=== PATIENT | male | born 1975 | race African-American/Black ===

== ENCOUNTER 2018-10-05 17:34 | Emergency (ER) | payer OTHER ==
[~2018-10-05] VITALS: Ht 188 cm; Wt 104.3 kg
--- NOTE | 2018-10-05 18:06 | ED Integumentary General ---
General Chief Complaint: Bite-Animal/Human/Insect Stated Complaint: BUMPS ON BACKSIDE Nursing Triage Note: PT AMBULATE TO ROOM 06 WITH C/O 3 INSECT BITES TO THE TOP OF LEFT BUTTOCKS. STATES BITES HAPPENED APPROX 0200 THIS AM. PT STATES HE WAS IN THE BACK SEAT OF A CAR WHEN THE BITES HAPPENED. Source: patient Exam Limitations: no limitations History of Present Illness Date Seen by Provider: Oct 05, 2018 Time Seen by Provider: 18:01 Initial Comments The patient is a 43-year-old black male who works at [employer]. He reports that about 0200 this morning while in the back seat of a car he felt acute pain in the upper extent of his left buttock and shortly thereafter noted extreme itching. Ultimately later this morning he scratched it harshly with his fingernails causing some bleeding. There has been no drainage from these lesions. He reports he has not been in the grass or weeds. He has no other symptoms. Timing/Duration: this morning Possible Cause: insect bite, insect sting Allergies and Home Medications Patient Home Medication List Home Medication List Reviewed: Yes Review of Systems Review of Systems Constitutional: see HPI EENTM: no symptoms reported Respiratory: no symptoms reported Cardiovascular: no symptoms reported Gastrointestinal: no symptoms reported Genitourinary: no symptoms reported Musculoskeletal: no symptoms reported Skin: no symptoms reported Psychiatric/Neurological: No Symptoms Reported Endocrine: No Symptoms Reported Hematologic/Lymphatic: No Symptoms Reported Past Lidxsmp-Jbuxvg-Bqmsoy Hx Patient Social History Recent Foreign Travel: No Contact w/Someone Who Travel: No Recent Infectious Disease Expo: No Physical Exam Vital Signs Vital Signs - First Documented 10/05/18 17:42 Temp 98.8 Pulse 94 Resp 16 B/P (MAP) 128/87 (101) Pulse Ox 96 O2 Delivery Room Air Capillary Refill : Less Than 3 Seconds General Appearance: mild distress HEENT: normal ENT inspection Neck: non-tender, full range of motion, supple, normal inspection Cardiovascular: normal peripheral pulses, regular rate, rhythm, no edema, no gallop, no JVD, no murmur Respiratory: chest non-tender, lungs clear, normal breath sounds, no respiratory distress, no accessory muscle use Gastrointestinal: normal bowel sounds, non tender, soft, no organomegaly, no pulsatile mass Comments There are 3 dimes sized intradermal welts in a near straight line across the upper pole of the left buttock,. Progress/Results/Core Measures Results/Orders Vital Signs/I&O 10/05/18 17:42 Temp 98.8 Pulse 94 Resp 16 B/P (MAP) 128/87 (101) Pulse Ox 96 O2 Delivery Room Air Blood Pressure Mean: 101 Departure Impression Primary Impression: Insect bites Disposition: 01 HOME, SELF-CARE Condition: Stable/Unchanged Departure-Patient Inst. Decision time for Depature: 18:06 Referrals: NO,LOCAL PHYSICIAN (PCP) Primary Care Physician Patient Instructions: Insect Bites and Stings Add. Discharge Instructions: All discharge instructions reviewed with patient and/or family. Voiced understanding. Obtain Benadryl and or Zyrtec and use as directed for itching. Obtain Cortizone 10 and apply to lesions 3 or 4 times daily. Do not use hot bath water or shower this will increase the itching. CHUCK WELLINGTON MD Oct 05, 2018 18:06
[2018-10-05 18:49] VITALS: BP 131/88
== END 2018-10-05 18:33 | disposition home or self-care (01) ==
LOC: ER 17:36
DX: S30.860A Insect bite (nonvenomous) of lower back and pelvis, initial encounter (principal); W57.XXXA Bitten or stung by nonvenomous insect and other nonvenomous arthropods, initial encounter
CPT/HCPCS: 99283

== ENCOUNTER 2019-10-31 16:35 | Emergency (ER) | payer OTHER ==
[~2019-10-31] VITALS: Ht 187.9 cm; Wt 90.7 kg
[2019-10-31] MEDS ORDERED: RX-ALBUTEROL INHALER (VENTOLIN HFA) 18 GM IH STA (17:13)
--- NOTE | 2019-10-31 17:18 | ED Cough/URI ---
General Chief Complaint: Respiratory Problems Stated Complaint: SOA Nursing Triage Note: PT AMB TO RM 10 WITH COMPLAINT SOA THAT STARTED YESTERDAY. Sepsis Screen: No Definite Risk Source: patient Exam Limitations: no limitations History of Present Illness Date Seen by Provider: Oct 31, 2019 Time Seen by Provider: 17:15 Initial Comments Cough, slight shortness of breath that started yesterday. No fever no headache no body aches no sore throat no known exposure to Covid 19. Otherwise healthy without known medical comorbidities. Timing/Duration: just prior to arrival, constant Severity/Quality: moderate Associated Symptoms: cough, shortness of breath Allergies and Home Medications Allergies Coded Allergies: No Known Drug Allergies (Unverified , 10/31/19) Patient Home Medication List Home Medication List Reviewed: Yes Review of Systems Review of Systems Constitutional: see HPI EENTM: see HPI Respiratory: no symptoms reported, see HPI, cough, short of breath Cardiovascular: no symptoms reported Genitourinary: no symptoms reported Musculoskeletal: no symptoms reported Skin: no symptoms reported Psychiatric/Neurological: No Symptoms Reported Hematologic/Lymphatic: No Symptoms Reported Immunological/Allergic: no symptoms reported Past Cbqhtjs-Qskbjd-Gkadiu Hx Patient Social History Alcohol Use: Occasionally Uses Recreational Drug Use: Yes (MARIUJUANA METH) Smoking Status: Current Everyday Smoker Type Used: Cigarettes 2nd Hand Smoke Exposure: Yes Recent Foreign Travel: No Contact w/Someone Who Travel: No Recent Infectious Disease Expo: No Recent Hopitalizations: No Immunizations Up To Date Tetanus Booster (TDap): Unknown Seasonal Allergies Seasonal Allergies: No Past Medical History Surgeries: No Respiratory: No Cardiac: No Neurological: No Sexually Transmitted Disease: Yes (TRICHOMONIS) HIV/AIDS: No Genitourinary: No Gastrointestinal: No Musculoskeletal: No Endocrine: No HEENT: No Loss of Vision: Denies Hearing Impairment: Denies Cancer: No Psychosocial: No Integumentary: No Blood Disorders: No Physical Exam Vital Signs - First Documented 10/31/19 16:45 Temp 37.5 Pulse 94 Resp 20 B/P (MAP) 130/89 (103) Pulse Ox 97 O2 Delivery Room Air Capillary Refill : Less Than 3 Seconds Height: 6'2.00" Weight: 230lbs. oz. [id number]; 25.00 BMI Method:Stated General Appearance: WD/WN, no apparent distress, other (oxygen saturation 99% room air) Eyes: Bilateral Eye Normal Inspection, Bilateral Eye PERRL, Bilateral Eye EOMI Neck: non-tender, full range of motion Respiratory: no respiratory distress, no accessory muscle use Cardiovascular: regular rate, rhythm, no murmur, other (little tachycardia rate of 105) Gastrointestinal: normal bowel sounds, non tender, soft Neurologic/Psychiatric: alert, normal mood/affect, oriented x 3 Skin: normal color, warm/dry Progress/Results/Core Measures Suspected Sepsis Recent Fever Within 48 Hours: No Infection Criteria Present: None New/Unexplained Altered Menta: No Sepsis Screen: No Definite Risk SIRS Temperature: Pulse: 94 Respiratory Rate: 20 Blood Pressure 130 /89 Mean: 103 Results/Orders My Orders Orders - RICHAR ARAYA APRN Chest 1 View, Ap/Pa Only (10/31/19 17:13) Coronavirus Sars-Cov-2 So 2018 (10/31/19 17:13) Rx-Albuterol Inhaler (Rx-Ventolin Hfa) (10/31/19 17:13) Vital Signs/I&O 10/31/19 16:45 Temp 37.5 Pulse 94 Resp 20 B/P (MAP) 130/89 (103) Pulse Ox 97 O2 Delivery Room Air Capillary Refill : Less Than 3 Seconds Blood Pressure Mean: 103 Departure Impression Primary Impression: Viral syndrome Disposition: 01 HOME, SELF-CARE Condition: Stable Departure-Patient Inst. Decision time for Depature: 17:17 Referrals: NO,LOCAL PHYSICIAN (PCP/Family) Primary Care Physician Patient Instructions: Viral Syndrome (DC) Add. Discharge Instructions: 1. Go home and stay quarantine for 24-48 hours until the Covid swab is resulted. Return to ER for any worsening shortness of breath. If you're Covid swab comes back positive [facility] will be in touch with you to guide you further as to when to return to work. All discharge instructions reviewed with patient and/or family. Voiced understanding. Work/School Note: Work Release Form Date Seen in the Emergency Department: Oct 31, 2019 Return to Work: Oct 31, 2019 Restrictions: Need Release from Doctor RICHAR ARAYA APRN Oct 31, 2019 17:18
[2019-10-31] MEDS ORDERED: predniSONE 20 MG TAB PO ONE (18:00)
[2019-10-31] MEDS ORDERED: RX-ACETAMINOPHEN/CODEINE TAB PPK #4 PO SCH (18:00)
[2019-10-31] MEDS ORDERED: LEVOFLOXACIN 500 MG TAB (LEVAQUIN) PO ONE (18:00)
--- NOTE | 2019-10-31 18:13 | Diagnostic Imaging Report ---
EXAM: CHEST 1 VIEW, AP/PA ONLY INDICATION: Cough. COMPARISON: None. FINDINGS: Normal heart size and central pulmonary vascularity. No focal pulmonary opacity, pleural effusion or pneumothorax. No acute osseous findings. IMPRESSION: No acute cardiopulmonary findings. Dictated by: Dictated on workstation # [id number]
[2019-10-31 18:16] VITALS: BP 115/79
== END 2019-10-31 18:16 | disposition home or self-care (01) ==
LOC: EDUNIT# 16:35 → ER 16:36
DX: B34.9 Viral infection, unspecified (principal); F17.210 Nicotine dependence, cigarettes, uncomplicated; Z20.828 Contact with and (suspected) exposure to other viral communicable diseases
CPT/HCPCS: 71045; 99282; U0002; 87635

== ENCOUNTER 2019-12-07 16:27 | Emergency (ER) | payer SELFPAY ==
[~2019-12-07] VITALS: Ht 187.9 cm; Wt 89.0 kg
[2019-12-07] MEDS ORDERED: NS IV 1000 ML 1,000 ML IV SCH (16:52)
[2019-12-07] MEDS ORDERED: PANTOPRAZOLE 40 MG (PROTONIX) VIAL IV ONE (17:00)
[2019-12-07 17:21] LABS: ALBUMIN 4.2 GM/DL (3.2-4.5); CHLORIDE 103 MMOL/L (98-107); POTASSIUM 3.9 MMOL/L (3.6-5.0); SODIUM 140 MMOL/L (135-145)
[2019-12-07 17:22] LABS: CALCIUM 9.2 MG/DL (8.5-10.1)
[2019-12-07 17:23] LABS: GLUCOSE 130 MG/DL (70-105); PROTHROMBIN TIME PATIENT 13.2 SEC (12.2-14.7); TOTAL PROTEIN 7.7 GM/DL (6.4-8.2)
[2019-12-07 17:24] LABS: CARBON DIOXIDE 25 MMOL/L (21-32)
[2019-12-07 17:25] LABS: BILIRUBIN,TOTAL 0.5 MG/DL (0.1-1.0)
[2019-12-07 17:27] LABS: ALKALINE PHOSPHATASE 61 U/L (40-136); CREATININE SERUM 1.09 MG/DL (0.60-1.30); GFR ESTIMATED > 60
[2019-12-07 17:28] LABS: BUN/CREATININE RATIO 11
[2019-12-07 17:30] LABS: ALANINE AMINOTRANSFERASE 34 U/L (0-55); BASOPHILS % (AUTO) 0 % (0-10); EOSINOPHILS # (AUTO) 0.2 10^3/uL (0.0-0.3); EOSINOPHILS % (AUTO) 3 % (0-10); HEMATOCRIT 47 % (40-54); HEMOGLOBIN 15.6 g/dL (13.3-17.7); LYMPHOCYTES # (AUTO) 1.2 10^3/uL (1.0-4.0); LYMPHOCYTES % (AUTO) 26 % (12-44); MEAN CORPUSCULAR HEMOGLOBIN 30 pg (25-34); MEAN CORPUSCULAR HGB CONC 34 g/dL (32-36); MEAN CORPUSCULAR VOLUME 90 fL (80-99); MEAN PLATELET VOLUME 10.4 fL (9.0-12.2); MONOCYTES # (AUTO) 0.6 10^3/uL (0.0-1.0); MONOCYTES % (AUTO) 13 % (0-12); NEUTROPHILS # (AUTO) 2.8 10^3/uL (1.8-7.8); NEUTROPHILS % (AUTO) 58 % (42-75); PLATELET COUNT 245 10^3/uL (130-400); WHITE BLOOD COUNT 4.8 10^3/uL (4.3-11.0)
--- NOTE | 2019-12-07 17:37 | ED GI ---
General Chief Complaint: Abdominal/GI Problems Stated Complaint: VOMITING BLOOD Nursing Triage Note: AMB TO ROOM C/O VOMITING NOTICED IT TO BE BLOOD TINGED. ADMITS TO DRINKING HEAVY,BUT STOPPED LAST 3 DAYS OF DRINKING. CO OF INTERMITTEN PAIN IN EPIGASTRIC AREA. Sepsis Screen: No Definite Risk History of Present Illness Date Seen by Provider: Dec 07, 2019 Time Seen by Provider: 16:40 Initial Comments 44-year-old -[place] male reports 2 episodes of vomiting with streaks of blood noted. They were dark red but not coffee ground emesis. He reports a history of gastritis in the past. He has drank multiple beers daily for approximately one year and quit this 3 days ago. No withdrawal symptoms since stopping the beer. He had an EGD done approximately 5-6 years ago while in [place]. History of GERD, he has taken Zantac and Rolaids in the past with some intermittent improvement Timing/Duration: 24 Hours Severity/Quality: Mild Location: [facility] Associated Symptoms: Denies Symptoms Allergies and Home Medications Allergies Coded Allergies: No Known Drug Allergies (Unverified , 10/31/19) Home Medications Famotidine 20 Mg Tablet, 20 MG PO BID Prescribed by: YIFAN GARCIA on 12/07/191739 Pantoprazole Sodium 40 Mg Tablet.dr, 40 MG PO DAILY Prescribed by: YIFAN GARCIA on 12/07/191739 Patient Home Medication List Home Medication List Reviewed: Yes Review of Systems Review of Systems Constitutional: no symptoms reported, see HPI Gastrointestinal: See HPI, Abdominal Pain, Vomiting All Other Systems Reviewed Negative Unless Noted: Yes Past Npdwqyu-Ijfckb-Axkjnc Hx Past Med/Social Hx: Reviewed Nursing Past Med/Soc Hx Patient Social History Alcohol Use: Occasionally Uses Recreational Drug Use: No Smoking Status: Current Everyday Smoker Type Used: Cigarettes 2nd Hand Smoke Exposure: Yes Recent Foreign Travel: No Contact w/Someone Who Travel: No Recent Infectious Disease Expo: No Recent Hopitalizations: No Immunizations Up To Date Tetanus Booster (TDap): Unknown Seasonal Allergies Seasonal Allergies: No Past Medical History Surgeries: No Respiratory: No Cardiac: No Neurological: No Sexually Transmitted Disease: Yes (TRICHOMONIS) HIV/AIDS: No Genitourinary: No Gastrointestinal: No Musculoskeletal: No Endocrine: No HEENT: No Loss of Vision: Denies Hearing Impairment: Denies Cancer: No Psychosocial: No Integumentary: No Blood Disorders: No Physical Exam Vital Signs Vital Signs - First Documented 12/07/19 16:35 Temp 36.8 Pulse 85 Resp 18 B/P (MAP) 124/85 (98) Pulse Ox 96 O2 Delivery Room Air Capillary Refill : Less Than 3 Seconds Height/Weight/BMI Height: 6'2.00" Weight: 230lbs. oz. 104.642432jy; 25.00 BMI Method:Stated General Appearance: WD/WN, no apparent distress HEENT: PERRL/EOMI, normal ENT inspection, TMs normal, pharynx normal Neck: non-tender, full range of motion, supple, normal inspection Respiratory: chest non-tender, lungs clear, normal breath sounds Cardiovascular: normal peripheral pulses, regular rate, rhythm Gastrointestinal: normal bowel sounds, non tender, soft; No distended, No guarding, No rebound, No tenderness Neurologic/Psychiatric: no motor/sensory deficits, alert, normal mood/affect, oriented x 3 Skin: normal color, warm/dry Progress/Results/Core Measures Results/Orders Lab Results Laboratory Tests Test 12/07/19 16:48 Range/Units White Blood Count 4.8 4.3-11.0 10^3/uL Red Blood Count 5.19 4.30-5.52 10^6/uL Hemoglobin 15.6 13.3-17.7 g/dL Hematocrit 47 40-54 % Mean Corpuscular Volume 90 80-99 fL Mean Corpuscular Hemoglobin 30 25-34 pg Mean Corpuscular Hemoglobin Concent 34 32-36 g/dL Red Cell Distribution Width 13.2 10.0-14.5 % Platelet Count 245 130-400 10^3/uL Mean Platelet Volume 10.4 9.0-12.2 fL Immature Granulocyte % (Auto) 0 % Neutrophils (%) (Auto) 58 42-75 % Lymphocytes (%) (Auto) 26 12-44 % Monocytes (%) (Auto) 13 H 0-12 % Eosinophils (%) (Auto) 3 0-10 % Basophils (%) (Auto) 0 0-10 % Neutrophils # (Auto) 2.8 1.8-7.8 10^3/uL Lymphocytes # (Auto) 1.2 1.0-4.0 10^3/uL Monocytes # (Auto) 0.6 0.0-1.0 10^3/uL Eosinophils # (Auto) 0.2 0.0-0.3 10^3/uL Basophils # (Auto) 0.0 0.0-0.1 10^3/uL Immature Granulocyte # (Auto) 0.0 0.0-0.1 10^3/uL Prothrombin Time 13.2 12.2-14.7 SEC INR Comment 1.0 0.8-1.4 Activated Partial Thromboplast Time 31 24-35 SEC Sodium Level 140 135-145 MMOL/L Potassium Level 3.9 3.6-5.0 MMOL/L Chloride Level 103 98-107 MMOL/L Carbon Dioxide Level 25 21-32 MMOL/L Anion Gap 12 5-14 MMOL/L Blood Urea Nitrogen 12 7-18 MG/DL Creatinine 1.09 0.60-1.30 MG/DL Estimat Glomerular Filtration Rate > 60 BUN/Creatinine Ratio 11 Glucose Level 130 H 70-105 MG/DL Calcium Level 9.2 8.5-10.1 MG/DL Corrected Calcium 9.0 8.5-10.1 MG/DL Total Bilirubin 0.5 0.1-1.0 MG/DL Aspartate Amino Transf (AST/SGOT) 23 5-34 U/L Alanine Aminotransferase (ALT/SGPT) 34 0-55 U/L Alkaline Phosphatase 61 40-136 U/L Total Protein 7.7 6.4-8.2 GM/DL Albumin 4.2 3.2-4.5 GM/DL My Orders Orders - YIFAN GARCIA Cbc With Automated Diff (12/07/19 16:32) Comprehensive Metabolic Panel (12/07/19 16:32) Protime With Inr (12/07/19 16:32) Partial Thromboplastin Time (12/07/19 16:32) Ed Iv/Invasive Line Start (12/07/19 16:52) Ns Iv 1000 Ml (Sodium Chloride 0.9%) (12/07/19 16:52) Pantoprazole Injection (Protonix Injecti (12/07/19 17:00) Medications Given in ED Current Medications Medications Dose Ordered Sig/Jamil Route Start Time Stop Time Status Last Admin Dose Admin Pantoprazole 40 mg ONCE ONCE IV 12/07/19 17:00 12/07/19 17:01 DC 12/07/19 17:07 40 MG Vital Signs/I&O 12/07/19 16:35 Temp 36.8 Pulse 85 Resp 18 B/P (MAP) 124/85 (98) Pulse Ox 96 O2 Delivery Room Air Blood Pressure Mean: 98 Progress Progress Note : Time: 16:40 Progress Note Patient seen and evaluated, will obtain labs, normal saline 1 L per IV, Protonix 40 mg IV. 1800 no vomiting since admission, patient reports symptoms have improved. Discharge instructions and return precautions reviewed with the patient. All questions answered. 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 Decision time for Depature: 18:00 Referrals: [facility]/MARGARITO MORAN MD NO,LOCAL PHYSICIAN (PCP) Primary Care Physician Patient Instructions: Gastritis (DC) Add. Discharge Instructions: Clear liquid diet for the next 6-8 hours then you may advance to a bland diet. Avoid spicy, fried or greasy foods. Take medications as prescribed. Establish care with [facility]. Follow-up with the surgeon if symptoms continue to have an EGD. Return to the emergency department for new, urgent health care needs. All discharge instructions reviewed with patient and/or family. Voiced understanding. Scripts Famotidine (Pepcid) 20 Mg Tablet 20 MG PO BID, #60 TAB 0 Refills Prov: YIFAN GARCIA 12/07/19 Pantoprazole Sodium (Protonix) 40 Mg Tablet.dr 40 MG PO DAILY for 30 Days, #30 TAB 0 Refills Prov: YIFAN GARCIA 12/07/19 Work/School Note: Work Release Form Date Seen in the Emergency Department: Dec 07, 2019 Return to Work: Dec 09, 2019 Restrictions: No Restrictions YIFAN GARCIA Dec 07, 2019 17:37
[2019-12-07] MEDS ORDERED: FAMO-119 PO (17:40)
[2019-12-07] MEDS ORDERED: PANT40TA2 PO (17:40)
--- NOTE | 2019-12-07 18:00 | NUR ---
TO ROOM FEELING BETTER
[2019-12-07 18:16] VITALS: BP 122/98
== END 2019-12-07 18:18 | disposition home or self-care (01) ==
LOC: EDUNIT# 16:27 → ER 16:28
DX: K29.70 Gastritis, unspecified, without bleeding (principal); F17.210 Nicotine dependence, cigarettes, uncomplicated
CPT/HCPCS: 36415; 80053; 85025; 85610; 85730

== ENCOUNTER 2022-10-14 11:26 | Emergency (ER) | payer SELFPAY ==
[~2022-10-14] VITALS: Ht 187 cm; Wt 89.0 kg
[~2022-10-14 11:26] MED LIST: FAMO-119 PO; PANT40TA2 PO
--- NOTE | 2022-10-14 11:56 | ED Cardiac General ---
History of Present Illness General Chief Complaint: Cardiac/General Problems Stated Complaint: ABNORMAL EKG Source: patient Exam Limitations: no limitations History of Present Illness Date Seen by Provider: Oct 14, 2022 Time Seen by Provider: 11:54 Initial Comments Patient is a 47-year-old male with a family cardiac history presents ED with left-sided chest pain. This chest pain started 2 days ago. Described as a pressure and intermittent. No current pain at this time. He has had some mild shortness of breath. Seems to be worse when he lies down. Patient was seen at [facility] had an abnormal EKG was recommended come the ED for further evaluation. Denies of any cough, chills, body aches, abdominal pain, vomiting, diarrhea, headache, sore throat or ear pain. No history of similar symptoms. Denies history hypertension, diabetes or high cholesterol. Meth use and marijuana use 2 days ago. No recent travels or surgeries. Denies any leg s welling or pain. Denies taking thing for his pain. Nothing seems to improve the pain Allergies and Home Medications Allergies Coded Allergies: No Known Drug Allergies (Unverified , 10/31/19) Patient Home Medication List Home Medication List Reviewed: Yes Famotidine (Pepcid) 20 Mg Tablet, 20 MG PO BID Prescribed by: YIFAN GARCIA on 12/07/191739 Pantoprazole Sodium (Protonix) 40 Mg Tablet.dr, 40 MG PO DAILY Prescribed by: YIFAN GARCIA on 12/07/191739 Review of Systems Review of Systems Constitutional: No chills, No diaphoresis EENTM: No Double Vision, No Eye Pain Respiratory: Denies Cough, Denies Orthopnea; Shortness of Air Cardiovascular: Chest Pain Gastrointestinal: Denies Abdominal Pain, Denies Diarrhea, Denies Nausea Genitourinary: Denies Burning, Denies Discharge, Denies Drainage, Denies Frequency Musculoskeletal: No back pain, No joint pain, No joint swelling, No muscle pain Skin: No change in color, No change in hair/nails All Other Systems Reviewed Negative Unless Noted: Yes Past Cfpnwtc-Yghoca-Hlpdul Hx Immunizations Up To Date Tetanus Booster (TDap): Unknown Seasonal Allergies Seasonal Allergies: No Past Medical History Surgeries: No Respiratory: No Cardiac: No Neurological: No Sexually Transmitted Disease: Yes (TRICHOMONIS) HIV/AIDS: No Genitourinary: No Gastrointestinal: No Musculoskeletal: No Endocrine: No HEENT: No Loss of Vision: Denies Hearing Impairment: Denies Cancer: No Psychosocial: No Integumentary: No Blood Disorders: No Physical Exam Vital Signs Vital Signs - First Documented 10/14/22 11:40 Temp 35.5 Pulse 85 Resp 22 B/P (MAP) 126/81 (96) Pulse Ox 100 Capillary Refill : Height, Weight, BMI Height: 6'2.00" Weight: 230lbs. oz. 104.036885ue; 25.00 BMI Method:Stated General Appearance: No Apparent Distress, WD/WN HEENT: PERRL/EOMI, TMs Normal, Normal ENT Inspection, Pharynx Normal Neck: Full Range of Motion, Normal Inspection, Non Tender, Supple Respiratory: Chest Non Tender, Lungs Clear, Normal Breath Sounds, No Accessory Muscle Use, No Respiratory Distress Cardiovascular: Regular Rate, Rhythm, No Edema, No Gallop, No JVD, No Murmur Gastrointestinal: Normal Bowel Sounds, No Organomegaly, No Pulsatile Mass, Non Tender Extremity: Normal Capillary Refill, Normal Inspection, Normal Range of Motion, Non Tender Neurologic/Psychiatric: Alert, Oriented x3, No Motor/Sensory Deficits, Normal Mood/Affect, seo engineer II-XII Norm as Tested Skin: Normal Color, Warm/Dry Progress/Results/Core Measures Results/Orders Lab Results Laboratory Tests Test 10/14/22 11:46 10/14/22 11:55 10/14/22 13:51 Range/Units White Blood Count 3.4 L 4.3-11.0 10^3/uL Red Blood Count 4.84 4.30-5.52 10^6/uL Hemoglobin 13.9 13.3-17.7 g/dL Hematocrit 43 40-54 % Mean Corpuscular Volume 88 80-99 fL Mean Corpuscular Hemoglobin 29 25-34 pg Mean Corpuscular Hemoglobin Concent 33 32-36 g/dL Red Cell Distribution Width 13.3 10.0-14.5 % Platelet Count 237 130-400 10^3/uL Mean Platelet Volume 9.3 9.0-12.2 fL Immature Granulocyte % (Auto) 0 % Neutrophils (%) (Auto) 59 42-75 % Lymphocytes (%) (Auto) 24 12-44 % Monocytes (%) (Auto) 12 0-12 % Eosinophils (%) (Auto) 4 0-10 % Basophils (%) (Auto) 1 0-10 % Neutrophils # (Auto) 2.0 1.8-7.8 10^3/uL Lymphocytes # (Auto) 0.8 L 1.0-4.0 10^3/uL Monocytes # (Auto) 0.4 0.0-1.0 10^3/uL Eosinophils # (Auto) 0.1 0.0-0.3 10^3/uL Basophils # (Auto) 0.0 0.0-0.1 10^3/uL Immature Granulocyte # (Auto) 0.0 0.0-0.1 10^3/uL Prothrombin Time 12.8 12.2-14.7 SEC INR Comment 0.9 0.8-1.4 Activated Partial Thromboplast Time 33 24-35 SEC D-Dimer 0.44 0.00-0.49 UG/ML Sodium Level 141 135-145 MMOL/L Potassium Level 3.8 3.6-5.0 MMOL/L Chloride Level 103 98-107 MMOL/L Carbon Dioxide Level 28 21-32 MMOL/L Anion Gap 10 5-14 MMOL/L Blood Urea Nitrogen 9 7-18 MG/DL Creatinine 1.06 0.60-1.30 MG/DL Estimat Glomerular Filtration Rate 87 BUN/Creatinine Ratio 8 Glucose Level 82 70-105 MG/DL Calcium Level 9.3 8.5-10.1 MG/DL Corrected Calcium 9.4 8.5-10.1 MG/DL Magnesium Level 2.2 1.6-2.4 MG/DL Total Bilirubin 0.4 0.1-1.0 MG/DL Aspartate Amino Transf (AST/SGOT) 26 5-34 U/L Alanine Aminotransferase (ALT/SGPT) 22 0-55 U/L Alkaline Phosphatase 67 40-136 U/L Myoglobin 79.7 10.0-92.0 NG/ML Troponin I < 0.028 < 0.028 <0.028 NG/ML B-Type Natriuretic Peptide < 10.0 <100.0 PG/ML Total Protein 7.4 6.4-8.2 GM/DL Albumin 3.9 3.2-4.5 GM/DL Lipase 34 8-78 U/L Influenza Type A (RT-PCR) Not Detected Not Detecte Influenza Type B (RT-PCR) Not Detected Not Detecte SARS-CoV-2 RNA (RT-PCR) Not Detected Not Detecte My Orders Orders - HAINES,MALACHI Ni PA Cbc With Automated Diff (10/14/22 11:53) Magnesium (10/14/22 11:53) Chest 1 View, Ap/Pa Only (10/14/22 11:53) Ekg Tracing (10/14/22 11:53) Comprehensive Metabolic Panel (10/14/22 11:53) Myoglobin Serum (10/14/22 11:53) Protime With Inr (10/14/22 11:53) Partial Thromboplastin Time (10/14/22 11:53) Monitor-Rhythm Ecg Trace Only (10/14/22 11:53) Ed Iv/Invasive Line Start (10/14/22 11:53) Lipase (10/14/22 11:53) Bnp Sonya (10/14/22 11:53) Troponin I [place] (10/14/22 11:53) Aspirin Chewable Tablet (Aspirin Chewabl (10/14/22 12:00) Covid 19 Inhouse Test (10/14/22 11:53) Influenza A And B By Pcr (10/14/22 11:53) Fibrin Degradation Products (10/14/22 11:54) Troponin I [place] (10/14/22 13:46) Medications Given in ED Current Medications Medications Dose Ordered Sig/Jamil Route Start Time Stop Time Status Last Admin Dose Admin Aspirin 324 mg ONCE ONCE PO 10/14/22 12:00 10/14/22 12:01 DC 10/14/22 12:27 324 MG Vital Signs/I&O 10/14/22 10/14/22 11:40 14:25 Temp 35.5 Pulse 85 80 Resp 22 22 B/P (MAP) 126/81 (96) 130/86 Pulse Ox 100 100 Comment Sinus rhythm, 81 bpm, QRS duration 93 MS, QTc 415 MS. Departure Communication (PCP) Reviewed previous ER visits, H&P, lab testing. Differential diagnosis, ACS, pericarditis, pneumonia, GERD, esophagitis, pancreatitis. History of meth use and marijuana use last used 2 days ago. No known cardiac history. Strong family cardiac history. Denies history of hypertension, diabetes, high choleste rol. History of smoking. Heart score of 2. Currently asymptomatic. Was sent to the ED from [facility] for abnormal EKG. Cardiac work-up was initiated. Received 324 mg of aspirin. EKG showed normal sinus rhythm without evidence of ST elevation or pression. CBC, CMP was grossly unremarkable. Normal troponin and BNP. D-dimer was added secondary to his history of IV drug use. He was not tachycardic or hypoxic. Normal D-dimer. Chest x-ray was negative for pneumonia, pneumothorax. White blood count was slightly low at 3.4 nonspecific. COVID influenza negative. Remained asymptomatic. Due to his extensive family cardiac history and length of pain it did add a 2-hour delta troponin which returned negative. Discussed all results with patient. Nonspecific chest pain. Recommend at this time further cardiac outpatient follow-up. Provided follow-up with Dr. Fox. Would likely benefit with echocardiogram versus cardiac stress test. Not necessarily highly suspicious at this time requiring admission however I do think at his age and family cardiac history that outpatient cardiac work-up would be reasonable. Discussed anti- inflammatories. If any worsening symptoms return back to ED. Patient agrees with plan of action Impression Primary Impression: Chest pain Disposition: 01 HOME, SELF-CARE Condition: Stable Departure-Patient Inst. Decision time for Depature: 14:20 Referrals: [facility]/K (PCP/Family) Primary Care Physician KENYA FOX MD Patient Instructions: Chest Pain (DC) Add. Discharge Instructions: Recommend follow-up your PCP for further evaluation. Cardiology outpatient follow-up All discharge instructions reviewed with patient and/or family. Voiced und erstanding. MALACHI HAINES Oct 14, 2022 11:56
[2022-10-14] MEDS ORDERED: ASPIRIN 81 MG CHEWABLE TABLET PO ONE (12:00)
[2022-10-14 12:09] LABS: BASOPHILS % (AUTO) 1 % (0-10); EOSINOPHILS # (AUTO) 0.1 10^3/uL (0.0-0.3); EOSINOPHILS % (AUTO) 4 % (0-10); HEMATOCRIT 43 % (40-54); HEMOGLOBIN 13.9 g/dL (13.3-17.7); LYMPHOCYTES # (AUTO) 0.8 10^3/uL (1.0-4.0); LYMPHOCYTES % (AUTO) 24 % (12-44); MEAN CORPUSCULAR HEMOGLOBIN 29 pg (25-34); MEAN CORPUSCULAR HGB CONC 33 g/dL (32-36); MEAN CORPUSCULAR VOLUME 88 fL (80-99); MEAN PLATELET VOLUME 9.3 fL (9.0-12.2); MONOCYTES # (AUTO) 0.4 10^3/uL (0.0-1.0); MONOCYTES % (AUTO) 12 % (0-12); NEUTROPHILS % (AUTO) 59 % (42-75); PLATELET COUNT 237 10^3/uL (130-400); WHITE BLOOD COUNT 3.4 10^3/uL (4.3-11.0)
[2022-10-14 12:14] LABS: ALBUMIN 3.9 GM/DL (3.2-4.5); CHLORIDE 103 MMOL/L (98-107); INR 0.9 (0.8-1.4); POTASSIUM 3.8 MMOL/L (3.6-5.0); PROTHROMBIN TIME PATIENT 12.8 SEC (12.2-14.7); SODIUM 141 MMOL/L (135-145)
[2022-10-14 12:15] LABS: CALCIUM 9.3 MG/DL (8.5-10.1)
[2022-10-14 12:16] LABS: GLUCOSE 82 MG/DL (70-105); TOTAL PROTEIN 7.4 GM/DL (6.4-8.2)
[2022-10-14 12:17] LABS: CARBON DIOXIDE 28 MMOL/L (21-32); FIBRIN DEGRADATION PRODUCTS 0.44 UG/ML (0.00-0.49)
[2022-10-14 12:18] LABS: BILIRUBIN,TOTAL 0.4 MG/DL (0.1-1.0)
[2022-10-14 12:20] LABS: ALKALINE PHOSPHATASE 67 U/L (40-136); CREATININE SERUM 1.06 MG/DL (0.60-1.30); GFR ESTIMATED 87
[2022-10-14 12:21] LABS: BUN/CREATININE RATIO 8
[2022-10-14 12:23] LABS: ALANINE AMINOTRANSFERASE 22 U/L (0-55); MAGNESIUM 2.2 MG/DL (1.6-2.4)
[2022-10-14 12:24] LABS: LIPASE 34 U/L (8-78)
--- NOTE | 2022-10-14 12:32 | Diagnostic Imaging Report ---
INDICATION: Chest pain Frontal chest at 1215 p.m. Heart and mediastinal silhouette are normal in appearance. The lungs are clear. There is no pneumothorax or pleural fluid. IMPRESSION: Negative chest. Dictated by: Dictated on workstation # [id number]
[2022-10-14 14:25] VITALS: BP 130/86
== END 2022-10-14 14:25 | disposition home or self-care (01) ==
LOC: EDUNIT# 11:26 → ER 11:28
DX: R07.89 Other chest pain (principal); Z20.822 Contact with and (suspected) exposure to COVID-19; Z82.49 Family history of ischemic heart disease and other diseases of the circulatory system; Z87.891 Personal history of nicotine dependence
CPT/HCPCS: 36415; 71045; 80053; 83690; 83735; 83874; 83880; 84484; 85025; 85379; 85610; 85730; 87636; 93005; 93041